=== PATIENT | female | born 1955 | race Caucasian/White ===

== ENCOUNTER 2016-07-09 10:52 | Emergency (ER) | payer MEDICAID, MEDICARE ==
[2016-07-09 12:21] VITALS: BP 117/80
--- NOTE | 2016-07-09 13:38 | RAD ---
HISTORY: Lateral left ankle pain, trauma COMPARISONS: None VIEWS: 3, Frontal, lateral, and oblique views of the left ankle FINDINGS: BONE DENSITY: Normal. BONES: There is no displaced fracture. JOINTS: There is osteoarthritis of the tibiotalar and fibulotalar articulations. ALIGNMENT: There is no dislocation. SOFT TISSUES: Unremarkable. OTHER FINDINGS: None. IMPRESSION: OSTEOARTHRITIS. NO ACUTE OSSEOUS INJURY. IF SYMPTOMS PERSIST, RECOMMEND REPEAT IMAGING.
--- NOTE | 2016-07-09 14:33 | UC ---
Lower Extremity/Ankle HPI - HPI Summary HPI Summary: YESTERDAY HIT LEFT ANKLE ON CLAW[place]OT BATH TUB; SWELLING AND PAIN WITH AMBULATING SINCE INJURY - History of Current Complaint Chief Complaint: UCLowerExtremity Stated Complaint: LEFT ANKLE INJURY Time Seen by Provider: 07/09/16 12:11 Hx Obtained From: Patient Onset/Duration: Sudden Onset, Lasting Hours, Still Present Severity Initially: Mild Severity Currently: Mild Pain Intensity: 3 Pain Scale Used: 0-10 Numeric Aggravating Factor(s): Standing, Ambulation Alleviating Factor(s): Rest, Elevation, Ice Able to Bear Weight: Yes - Risk Factors Gout Risk Factors: Negative DVT Risk Factors: Negative Septic Arthritis Risk Factor: Negative - Allergies/Home Medications Allergies/Adverse Reactions: Allergies Allergy/AdvReac Type Severity Reaction Status Date / Time Cefaclor [From Ceclor] Allergy Intermediate Hives Verified 07/09/16 12:22 Oxycodone [From Percodan] Allergy Intermediate Hives Verified 07/09/16 12:22 Home Medications: Home Medications Cholecalciferol [Vitamin D-3] 1,000 units PO DAILY 07/09/16 [History Confirmed 07/09/16] Citalopram TAB* [Celexa TAB*] 12.5 mg PO DAILY 07/09/16 [History Confirmed 07/09] Cyanocobalamin [Vitamin B 12] 1,000 mg PO DAILY 07/09/16 [History Confirmed ] Hydrocodone Bitartrate [Zohydro ER] 1 tab PO BID 07/09/16 [History Confirmed ] LORazepam TAB(*) [Ativan 1 MG TAB (*)] 1 tab PO DAILY PRN 07/09/16 [History Confirmed 07/09/16] Nitroglycerin TAB 0.4 MG* 1 tab SL SEE INSTRUCTIONS PRN 07/09/16 [History Confirmed 07/09/16] [place]-3 Fatty Acids [Fish Oil] 1 tab PO DAILY 07/09/16 [History Confirmed ] Omeprazole [Prilosec] 1 tab PO DAILY 07/09/16 [History Confirmed 07/09/16] Sumatriptan Succinate [Imitrex] 25 mg PO DAILY PRN 07/09/16 [History Confirmed 07/09/16] PMH/Surg Hx/FS Hx/Imm Hx Previously Healthy: Yes Endocrine History Of: Denies: Diabetes Cardiovascular History Of: Reports: Cardiac Disorders - A-fib Denies: Hypertension - OFF MED, BP RUNS LOW, Pacemaker/ICD Respiratory History Of: Reports: COPD GI/ History Of: Denies: Renal Disease - Surgical History Surgical History: Yes Surgery Procedure, Year, and Place: HYSTERECTOMY-Partial. KNEE SX B/L - TOTAL REPLACEMENT - ( 8 DIFFERENT SURG ON Rt KNEE). NECK TUMOR REMOVED - BENIGN - 2003. BREAST TUMOR REMOVED - BENIGN -1974. T & A. CARDIAC CATH - NO STENTS. Bilateral Wrist Arthroscopy - Family History Known Family History: Negative: Blood Disorder - Social History Occupation: Employed Full-time Lives: With Family Alcohol Use: None Substance Use Type: None Smoking Status (MU): Never Smoked Tobacco Household Exposure Type: Cigarettes Review of Systems Constitutional: Negative Skin: Negative Eyes: Negative ENT: Negative Respiratory: Negative Cardiovascular: Negative Gastrointestinal: Negative Genitourinary: Negative Motor: Negative Neurovascular: Negative Musculoskeletal: Arthralgia, Edema - LEFT LATERAL ANKLE, Myalgia Neurological: Negative Psychological: Negative All Other Systems Reviewed And Are Negative: Yes Physical Exam Triage Information Reviewed: Yes Appearance: Well-Appearing, No Pain Distress, Well-Nourished Vital Signs: Initial Vital Signs Temp 98.8 F 07/09/16 12:15 Pulse 72 07/09/16 12:15 Resp 16 07/09/16 12:15 BP 117/80 07/09/16 12:15 Pulse Ox 96 07/09/16 12:15 Vital Signs Reviewed: Yes Eye Exam: Normal ENT Exam: Normal ENT: Positive: Normal ENT inspection, Hearing grossly normal, Pharynx normal, TMs normal Dental Exam: Normal Neck exam: Normal Neck: Positive: Supple, Nontender, No Lymphadenopathy Respiratory Exam: Normal Respiratory: Positive: Chest non-tender, Lungs clear, Normal breath sounds, No respiratory distress, No accessory muscle use Cardiovascular Exam: Normal Cardiovascular: Positive: RRR, No Murmur Abdominal Exam: Normal Abdomen Description: Positive: Nontender, No Organomegaly Musculoskeletal: Positive: Strength Intact, ROM Intact, Edema @ - LEFT LATERAL ANKLE Neurological Exam: Normal Psychological Exam: Normal Psychological: Positive: Normal Response To Family Skin Exam: Normal Lower Extremity Course/Dx - Differential Dx/Diagnosis Differential Diagnosis/HQI/PQRI: Fracture (Closed), Sprain, Strain Provider Diagnoses: LEFT ANKLE CONTUSION/SPRAIN Discharge - Discharge Plan Condition: Stable Disposition: HOME Patient Education Materials: Ankle Sprain (ED), Foot Contusion (ED) Referrals: [facility] [Outside] Ana Almaguer MD [Primary Care Provider] -
== END 2016-07-09 14:13 | disposition home or self-care (01) ==
LOC: UCCORT 10:52
DX: S90.02XA Contusion of left ankle, initial encounter (principal); S93.402A Sprain of unspecified ligament of left ankle, initial encounter; W22.8XXA Striking against or struck by other objects, initial encounter; Y93.9 Activity, unspecified; Y92.002 Bathroom of unspecified non-institutional (private) residence as the place of occurrence of the external cause; Z88.1 Allergy status to other antibiotic agents; Z88.5 Allergy status to narcotic agent; I48.91 Unspecified atrial fibrillation; J44.9 Chronic obstructive pulmonary disease, unspecified; Z90.711 Acquired absence of uterus with remaining cervical stump; Z96.653 Presence of artificial knee joint, bilateral; Z77.22 Contact with and (suspected) exposure to environmental tobacco smoke (acute) (chronic)
CPT/HCPCS: 99214; G0463